=== PATIENT | female | born 1950 | race American Indian/Alaskan Native ===

== ENCOUNTER 2017-03-17 08:15 | Outpatient (CLI) | payer MEDICARE, OTHER ==
--- NOTE | 2017-03-17 11:34 | Mammography Report ---
Bilateral digital screening mammogram with CAD. Comparison study is dated March 16, 2016. Findings: There is a tiny parenchymal asymmetry seen in the right breast on the CC projection lateral to the nipple line. This cannot be identified with certainty on the MLO projection. Otherwise the breasts are fibrofatty with no additional focal findings. Impression: Right parenchymal asymmetry. BI-RADS code: 0. Recommendation: Spot compression image, 90 degree view, and ultrasound if needed.
== END 2017-03-17 08:16 | disposition home or self-care (01) ==
LOC: MAMMO 08:15
PROVIDERS: ATTEND Internal Medicine
DX: Z12.31 Encounter for screening mammogram for malignant neoplasm of breast (principal)
CPT/HCPCS: 77067; G0202

== ENCOUNTER 2017-03-30 08:25 | Outpatient (CLI) | payer MEDICARE, OTHER ==
--- NOTE | 2017-03-30 09:52 | Mammography Report ---
Diagnostic right mammogram. History: Recall for right asymmetry seen in the CC projection. Findings: A spot compression image demonstrates effacement of the previously noted small asymmetric density which also is not seen on the 90 degree view. No architectural distortion or other suspicious findings are seen. Impression: No suspicious findings. BI-RADS code: 2. Recommendation: Annual screening.
== END 2017-03-30 08:26 | disposition home or self-care (01) ==
LOC: MAMMO 08:25
PROVIDERS: ATTEND Internal Medicine
DX: R92.8 Other abnormal and inconclusive findings on diagnostic imaging of breast (principal)
CPT/HCPCS: G0206-RT

== ENCOUNTER 2018-05-12 09:34 | Outpatient (CLI) | payer MEDICARE, OTHER ==
--- NOTE | 2018-05-12 10:22 | Mammography Report ---
RIGHT DIGITAL DIAGNOSTIC MAMMOGRAM : 05/12/18 09:34:00 CLINICAL: Recalled for focal asymmetry COMPARISON:04/08/18 screening FINDINGS: Additional mammographic views were performed and are negative. IMPRESSION: Negative Mammogram. BI-RADS CATEGORY: 1 -- Negative RECOMMENDATION: Routine mammographic screening in one year. ACR BI-RADS MAMMOGRAPHIC CODES: 0 = Needs additional imaging evaluation; 1 = Negative; 2 = Benign; 3 = Probably benign; 4 = Suspicious; 5 = Malignant; 6 = Known biopsy-proven malignancy COMMENT: 1. Dense breast tissue, i.e., adenosis, fibrocystic changes, etc., may obscure an underlying neoplasm. 2. Approximately 10% of cancers are not detected with mammography. 3. A negative mammography report should not delay biopsy if a clinically suspicious mass is present. COMMENT: Patient follow-up letters are generated via our [employer] application.
== END 2018-05-12 09:35 | disposition home or self-care (01) ==
LOC: MAMMO 09:34
PROVIDERS: ATTEND Internal Medicine
DX: R92.8 Other abnormal and inconclusive findings on diagnostic imaging of breast (principal); I10 Essential (primary) hypertension; E78.00 Pure hypercholesterolemia, unspecified; Z91.018 Allergy to other foods